=== PATIENT | female | born 1995 | race Caucasian/White ===

== ENCOUNTER → 2017-10-07 | Outpatient (CLI) | payer OTHER ==
[~2017-10-07] MED LIST: AMOX500 PO; DIPH50 PO; FAMO20 PO; Flagyl500 MG PO; MEDR150I; Macrobid 100 M100 MG PO; NAPR500 PO; PRED20 PO; Prednisone20 MG PO; SERT25 PO
[2017-10-08 03:29] LABS: Source VAG/CERVIX
== END | disposition home or self-care (01) ==
LOC: LAB 11:36
PROVIDERS: Nurse Practitioner Obstetrics & Gynecology
DX: Z11.3 Encounter for screening for infections with a predominantly sexual mode of transmission (principal); Z01.419 Encounter for gynecological examination (general) (routine) without abnormal findings
CPT/HCPCS: 87491; 87591; G0123

== ENCOUNTER → 2018-11-03 | Outpatient (CLI) | payer SELFPAY ==
[2018-11-06 06:14] LABS: CHLAMYDIA TRACHOMATIS, NAA Negative (Negative); NEISSERIA GONORRHOEAE, NAA Negative (Negative)
== END | disposition home or self-care (01) ==
LOC: LAB SHORT 11:46 → LAB 11:46
PROVIDERS: Nurse Practitioner Obstetrics & Gynecology
DX: Z11.3 Encounter for screening for infections with a predominantly sexual mode of transmission (principal)
CPT/HCPCS: 87491; 87591

== ENCOUNTER → 2019-07-06 | Outpatient (CLI) | payer SELFPAY ==
[2019-07-07 09:33] LABS: Candida species (DNA Probe) Positive (NEGATIVE); G. vaginalis (DNA Probe) Negative (NEGATIVE); T. vaginalis (DNA Probe) Negative (NEGATIVE)
== END | disposition home or self-care (01) ==
LOC: LAB 15:00 → LAB SHORT 15:00
PROVIDERS: Obstetrics & Gynecology
DX: N76.0 Acute vaginitis (principal)
CPT/HCPCS: 87480; 87510; 87660

== ENCOUNTER 2019-07-23 22:31 | Emergency (ER) | payer SELFPAY ==
[~2019-07-23] VITALS: Ht 157.5 cm; Wt 72.6 kg
== END 2019-07-23 23:18 | disposition home or self-care (01) ==
LOC: ER 22:31
DX: B35.4 Tinea corporis (principal); F17.210 Nicotine dependence, cigarettes, uncomplicated
CPT/HCPCS: 99282

== ENCOUNTER 2020-05-01 14:54 | Emergency (ER) | payer SELFPAY ==
[~2020-05-01] VITALS: Ht 157.5 cm; Wt 79.4 kg
[~2020-05-01 14:54] MED LIST changes: +ACETAMINOPHEN500 MG PO
== END 2020-05-01 17:34 | disposition home or self-care (01) ==
LOC: ER 14:54
DX: S93.401A Sprain of unspecified ligament of right ankle, initial encounter (principal); F17.210 Nicotine dependence, cigarettes, uncomplicated; W01.0XXA Fall on same level from slipping, tripping and stumbling without subsequent striking against object, initial encounter
CPT/HCPCS: 29515; 73610; 99283-25

== ENCOUNTER 2022-04-05 22:06 | Emergency (ER) | payer BC, OTHER ==
[~2022-04-05] VITALS: Ht 157.5 cm; Wt 81.7 kg
[2022-04-06] MEDS ORDERED: Permethrin60 GM TOP (00:13)
== END 2022-04-06 00:26 | disposition home or self-care (01) ==
LOC: ER 22:06
DX: T14.8XXA Other injury of unspecified body region, initial encounter (principal); F17.210 Nicotine dependence, cigarettes, uncomplicated
CPT/HCPCS: 99282